=== PATIENT | male | born 1950 | race Caucasian/White ===

== ENCOUNTER 2018-02-23 07:58 | Observation (INO) | payer MEDICARE, OTHER ==
[2018-02-22 12:23] LABS: BASOPHILS % 0.3 % (0.0-1.0); EOSINOPHILS % 0.4 % (0.0-6.0); HEMATOCRIT 38.8 % (38.2-49.6); HEMOGLOBIN 12.2 g/dL (14.0-18.0); LYMPHOCYTES % 14.1 % (18.0-39.1); MEAN CORPUSCULAR HGB CONC 31.4 g/dL (31-35); MEAN CORPUSCULAR VOLUME 95.3 fL (81-99); MONOCYTES # (AUTO) 0.9 (0.2-0.8); MONOCYTES % 13.3 % (4.4-11.3); NEUTROPHILS # (AUTO) 4.6 (2.1-6.9); NEUTROPHILS % 67.5 % (38.7-80.0); PLATELET COUNT 147 x10e3/uL (140-360); RED BLOOD COUNT 4.07 x10e6/uL (4.3-5.7); RED CELL DISTRIBUTION WIDTH 17.9 % (11.7-14.4)
--- NOTE | 2018-02-22 13:22 | Diagnostic Imaging Report ---
EXAMINATION: PA and lateral views of the chest. COMPARISON: None CLINICAL HISTORY: Prostate cancer, preoperative film DISCUSSION: Lines/tubes: None. Lungs: The lungs are well inflated. 1.2 cm radiopaque density in the anterolateral right lower or posterolateral right middle lobe. There is no evidence of pneumonia or pulmonary edema. Pleura: Blunting of the left lateral and posterior costophrenic sulci. Heart and mediastinum: Cardiomediastinal silhouette is unremarkable. Pulmonary vasculature is normal. Bones and soft tissues: No acute bony abnormalities. Degenerative changes in the thoracic spine IMPRESSION: 1. Blunting of the left lateral and posterior costophrenic sulci, likely representing multiple pleural effusion versus pleural thickening. 2. 1.2 cm radiopaque density in the right lower lung may represent a calcified granuloma. Prior films, if available, would be helpful for comparison. If no prior films can be obtained, recommend chest CT for further evaluation. Signed by: Dr. Gerald Martin M.D. on 02/22/2018 1:19 PM
[~2018-02-23] VITALS: Ht 185.4 cm; Wt 94.8 kg
[~2018-02-23 07:58] MED LIST: LISINOPRIL10 MG PO; NORCO 10-325 T1 EACH PO
[2018-02-23] MEDS ORDERED: LEVOFLOXACIN 500MG/D5W 100ML 100 ML IV ONE (08:30)
[2018-02-23] MEDS ORDERED: HYOSCYAMINE 0.125 MG TAB ONE ×2 (08:30→12:11)
[2018-02-23] MEDS ORDERED: IOPAMIDOL 300MG/ML 50ML INFUS..BTL IV ONE (09:07)
[2018-02-23] MEDS ORDERED: MORPHINE SULFATE INJ 10 MG/ML ONE (12:05)
[2018-02-23] MEDS ORDERED: FUROSEMIDE INJ 10 MG/ML 4 ML VIAL ONE (12:10)
[2018-02-23] MEDS ORDERED: FUROSEMIDE INJ 10 MG/ML 2 ML VIAL IV ONE (12:15)
[2018-02-23] MEDS ORDERED: HYOSCYAMINE 0.125 MG TAB PO ONE (12:15)
[2018-02-23] MEDS ORDERED: SODIUM CHLORIDE 0.9% 500ML 500 ML IV ONE (12:15)
[2018-02-23] MEDS ORDERED: SODIUM CHLORIDE 0.9% 1000ML 1,000 ML ONE (12:15)
[2018-02-23] MEDS ORDERED: ONDANSETRON HCL INJ 2 MG/ML VIAL ONE (13:06)
[2018-02-23] MEDS ORDERED: ESMOLOL HCL 100MG/10ML 10 MG/ML VIAL ONE (13:06)
[2018-02-23] MEDS ORDERED: LIDOCAINE HCL 2% LOCAL INJ 5 ML SDV VIAL INJ ONE (13:06)
[2018-02-23] MEDS ORDERED: DEXAMETHASONE SOD PHOS INJ 4 MG/ML VIAL ONE (13:06)
[2018-02-23] MEDS ORDERED: SEVOFLURANE INHAL SOLN 250 ML PEN BTL ONE (13:06)
[2018-02-23] MEDS ORDERED: PROPOFOL IV EMULSION 10 MG/ML 20 ML VIAL ONE (13:06)
[2018-02-23] MEDS ORDERED: ACETAMINOPHEN 1000 MG/100 ML IV ONE (13:06)
[2018-02-23 13:30] VITALS: BP 162/88
[2018-02-23] MEDS ORDERED: HYOSCYAMINE 0.125 MG TAB SL PRN (13:30)
[2018-02-23 13:51] VITALS: BP 162/88
[2018-02-23] MEDS: SODIUM CHLORIDE 0.9% 1000ML 1,000 ML IV SCH ×2 (14:00→20:12)
[2018-02-23] MEDS: HYDROMORPHONE 1MG/1ML INJ IV PRN ×3 (14:01→22:30)
[2018-02-23] MEDS: ONDANSETRON HCL INJ 2 MG/ML VIAL IV PRN ×3 (14:01→22:30)
[2018-02-23 15:34] VITALS: BP 141/80
[2018-02-23] MEDS: HYDROCODONE/APAP 10MG-325MG TAB PO PRN (16:08)
[2018-02-23 16:49] VITALS: BP 141/80
[2018-02-23] MEDS: LISINOPRIL 10 MG TAB PO SCH (17:04)
[2018-02-23 20:34] VITALS: BP 125/66
[2018-02-24 00:07] VITALS: BP 130/71
[2018-02-24] MEDS: HYDROMORPHONE 1MG/1ML INJ IV PRN ×3 (02:30→06:31)
[2018-02-24] MEDS: ONDANSETRON HCL INJ 2 MG/ML VIAL IV PRN ×2 (02:30→06:31)
[2018-02-24] MEDS: SODIUM CHLORIDE 0.9% 1000ML 1,000 ML IV SCH (03:54)
[2018-02-24 04:00] VITALS: BP 132/85
[2018-02-24 05:42] LABS: BASOPHILS % 0.4 % (0.0-1.0); EOSINOPHILS % 0.4 % (0.0-6.0); HEMATOCRIT 28.7 % (38.2-49.6); HEMOGLOBIN 8.7 g/dL (14.0-18.0); LYMPHOCYTES # (AUTO) 0.5 (1.0-3.2); LYMPHOCYTES % 20.5 % (18.0-39.1); MEAN CORPUSCULAR HEMOGLOBIN 29.6 pg (28-32); MEAN CORPUSCULAR HGB CONC 30.3 g/dL (31-35); MEAN CORPUSCULAR VOLUME 97.6 fL (81-99); MONOCYTES # (AUTO) 0.5 (0.2-0.8); MONOCYTES % 18.5 % (4.4-11.3); NEUTROPHILS # (AUTO) 1.5 (2.1-6.9); NEUTROPHILS % 58.3 % (38.7-80.0); PLATELET COUNT 87 x10e3/uL (140-360); RED BLOOD COUNT 2.94 x10e6/uL (4.3-5.7); RED CELL DISTRIBUTION WIDTH 17.6 % (11.7-14.4)
[2018-02-24 06:00] LABS: ANION GAP 12.8 mmol/L (8-16); CALCIUM 8.7 mg/dL (8.4-10.2); CREATININE, SERUM 1.45 mg/dL (0.72-1.25); POTASSIUM 4.8 mmol/L (3.5-5.1)
[2018-02-24 07:19] VITALS: BP 146/75
[2018-02-24] MEDS: LISINOPRIL 10 MG TAB PO SCH (08:44)
[2018-02-24 08:55] VITALS: BP 146/75
[2018-02-24] MEDS: HYDROCODONE/APAP 10MG-325MG TAB PO PRN (10:51)
[2018-02-24 11:16] VITALS: BP 151/73
[2018-02-24 11:18] VITALS: BP 151/73
[2018-02-24] MEDS ORDERED: SODIUM CHLORIDE 0.9% 500ML 500 ML IV ONE (12:15)
[2018-02-24] MEDS ORDERED: FENTANYL CITRATE/PF 100MCG/2 ML INJ ONE (12:39)
[2018-02-24] MEDS ORDERED: MIDAZOLAM HCL 2 MG/2 ML VIAL ONE (12:39)
--- OUTSIDE RECORDS SUMMARY | 2018-03-31 04:50 | XMS REPORT | Clinical Summary ---
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 Disp. Refills Start End Date Status Date lisinopril Take 10 mg by mouth Active (PRINIVIL,ZESTRIL) 10 mg daily. tablet HYDROcodone-acetaminophen Take 1 tablet by mouth Active (NORCO) 10-325 mg per every 6 (six) hours as tablet needed for moderate pain. ferrous sulfate 325 (65 Take 325 mg by mouth 01/12/20 Discontin FE) MG tablet daily with breakfast. 18 ued Active Problems Not on file Encounters Date Type Specialty Care Team Description 01/27/2018 [facility] Radiology Randy Mcmillan, Malignant neoplasm of Encounter prostate; Elevated prostate specific antigen (PSA) 01/27/2018 Hospital Radiology Randy Mcmillan, Encounter MD 01/27/2018 [facility] Radiology Randy Mcmillan, Malignant neoplasm of Encounter prostate; Elevated prostate specific antigen (PSA) 01/18/2018 Procedure Pass Radiology 01/18/2018 Transcribe Access Randy Mcmillan, Malignant neoplasm of Orders prostate (Primary Dx); Elevated prostate specific antigen (PSA) 01/11/2018 [facility] Radiology Randy Mcmillan, Elevated prostate Encounter specific antigen (PSA); Enlarged prostate with urinary obstruction 01/11/2018 [facility] General Surgery Randy Mcmillan, Elevated PSA; Encounter Benign localized hyperplasia of prostate with urinary obstruction 01/11/2018 Anesthesia General Surgery Silvio Rivas MD Event 01/11/2018 Procedure Pass General Surgery 01/11/2018 Surgery General Surgery Randy Mcmillan, Cystoscopy , TRANSRECTAL PROSTATE ULTRASOUND NEEDLE BIOPSY 01/06/2018 Pre-Admit Pre-Admission Testing Randy Mcmillan, Preoperative testing Testing MD (Primary Dx) Appointment 01/06/2018 Transcribe Access Randy Mcmillan, Elevated prostate Orders MD specific antigen (PSA) (Primary Dx); Enlarged prostate with urinary obstruction 01/04/2018 Hospital Radiology Randy Mcmillan, Enlarged prostate with Encounter MD urinary obstruction; Mixed incontinence urge and stress (male)(female) 12/30/2017 Transcribe Access Randy Mcmillan, Enlarged prostate with Orders MD urinary obstruction (Primary Dx); Mixed incontinence urge and stress (male)(female) after 02/22/2017 Family History Medical History Relation Name Comments Heart disease Father Aneurysm Mother Relation Name Status Comments Father Mother Social History Tobacco Use Types Packs/Day Years Used Date Current Every Day Smoker Cigarettes 0.25 55 Smokeless Tobacco: Chew Current User Tobacco Cessation: Ready to Quit: No; Counseling Given: Yes Alcohol Use Drinks/Week oz/Week Comments Yes 30 Shots of 18.0 4or 5 shots per night liquor Sex Assigned at Date Recorded Not on file Last Filed Vital Signs Vital Sign Reading Time Taken Blood Pressure 140/78 01/11/2018 5:04 PM CDT Pulse 89 01/11/2018 5:04 PM CDT Temperature 36.1 C (97 F) 01/11/2018 5:04 PM CDT Respiratory Rate 18 01/11/2018 5:04 PM CDT Oxygen Saturation 95% 01/11/2018 4:56 PM CDT Inhaled Oxygen - - Concentration Weight 81.2 kg (179 lb) 01/27/2018 1:48 PM CDT Height 186.7 cm (6' 1.5") 01/11/2018 2:13 PM CDT Body Mass Index 23.3 01/27/2018 1:48 PM CDT Plan of Treatment Health Maintenance Due Date Last Done Comments SHINGRIX VACCINE (#1) 1998 ZOSTER VACCINE 2008 PNEUMOCOCCAL 2013 POLYSACCHARIDE VACCINE AGE 65 AND OVER PNEUMOCOCCAL-13 2013 INFLUENZA VACCINE 01/26/2018 COLON CANCER SCREENING 09/22/2026 09/22/2016 Procedures Procedure Name Priority Date/Time Associated Diagnosis Comments MRI PELVIS W WO CONTRAST Routine 01/27/2018 Malignant neoplasm of Results for this 2:17 PM CDT prostate procedure are in the Elevated prostate results section. specific antigen (PSA) NM BONE SCAN WHOLE BODY Routine 01/27/2018 Malignant neoplasm of Results for this 1:30 PM CDT prostate procedure are in the Elevated prostate results section. specific antigen (PSA) US PROSTATE BIOPSY Routine 01/11/2018 Elevated prostate Results for this 4:16 PM CDT specific antigen (PSA) procedure are in the Enlarged prostate with results section. urinary obstruction IN AN ELECTIVE Routine 01/11/2018 SUPRAGLOTTIC AIRWAY 3:57 PM CDT Procedure Note - Alvaro Calderon CRNA - 01/11/2018 3:57 PM CDT Airway Date/Time: 01/11/2018 3:51 PM Performed by: ALVARO CALDERON Authorized by: SILVIO RIVAS Location: OR Urgency: Elective Difficult Airway: No Resident/C RNA/AA: LAVARO CALDERON Performed by: resident/C RNA/AA Preoxygena gian with 100% O2: Yes C-spine Precaution s Maintained Throughout : Yes Mask Ventilatio n: Not attempted Final Airway Type: Supraglott ic airway Final LMA: Classic LMA Size: 4 Number of Attempts at Approach: 1 SURGICAL PATHOLOGY Routine 01/11/2018 Results for this REQUEST 9:36 AM CDT procedure are in the results section. MANUAL DIFFERENTIAL Routine 01/06/2018 Results for this 11:12 AM CDT procedure are in the results section. ZZESTIMATED GFR Routine 01/06/2018 Results for this 11:12 AM CDT procedure are in the results section. BASIC METABOLIC PANEL Routine 01/06/2018 Preoperative testing Results for this 11:12 AM CDT procedure are in the results section. CBC WITH PLATELET AND Routine 01/06/2018 Preoperative testing Results for this DIFFERENTIAL 11:12 AM CDT procedure are in the results section. ECG PRE/POST OP Routine 01/06/2018 Preoperative testing Results for this 11:05 AM CDT procedure are in the results section. US PROSTATE Routine 01/04/2018 Enlarged prostate with Results for this 1:48 PM CDT urinary obstruction procedure are in the Mixed incontinence urge results section. and stress (male)(female) after 02/22/2017 Results * MRI Pelvis W Wo Contrast (01/27/2018 2:17 PM) Narrative Performed At [facility] EXAMINATION: MRI PELVIS W WO CONTRAST CLINICAL HISTORY: C61 Malignant neoplasm of prostate, R97.20 Elevated prostate specific antigen (PSA), C61 TECHNIQUE: Multiplanar multisequence MR images of the pelvis were obtained pre - and post intravenous administration of Gadolinium. Please note, the exam was performed as MR if pelvis to evaluate for metastatic disease, not a dedicated prostate MRI. COMPARISON: None. FINDINGS: Evaluation of the prostate is limited without small field of view imaging. Postbiopsy hemorrhage is noted through the prostate. The prostate does is normal in size and measures 2.7 x 4.5 x 3.6 cm. No focus of restricted diffusion is identified. Extra prostatic tissues and fat appear unremarkable given recent biopsy. Urinary bladder is unremarkable without wall thickening. Seminal vesicles appear normal. There is no pathological adenopathy in the pelvis. There is extensive artifact in the right hip from right hip replacement with revision and lateral cerclage plate. Excluding areas affected by this artifact , no suspicious osseous infiltration is identified through the remainder of the pelvis. Diverticulosis is present without diverticulitis. Bowel is otherwise unremarkable. Artifact is noted over the posterior right hip which likely relates to previous surgery and scar. IMPRESSION: No findings for metastatic disease in the pelvis. [facility]-[id number] Procedure Note [facility], Radiology Results - 01/27/2018 5:26 PM CDT EXAMINATION: MRI PELVIS W WO CONTRAST CLINICAL HISTORY: C61 Malignant neoplasm of prostate, R97.20 Elevated prostate specific antigen (PSA), C61 TECHNIQUE: Multiplanar multisequence MR images of the pelvis were obtained pre- and post intravenous administration of Gadolinium. Please note, the exam was performed as MR if pelvis to evaluate for metastatic disease, not a dedicated prostate MRI. COMPARISON: None. FINDINGS: Evaluation of the prostate is limited without small field of view imaging. Postbiopsy hemorrhage is noted through the prostate. The prostate does is normal in size and measures 2.7 x 4.5 x 3.6 cm. No focus of restricted diffusion is identified. Extra prostatic tissues and fat appear unremarkable given recent biopsy. Urinary bladder is unremarkable without wall thickening. Seminal vesicles appear normal. There is no pathological adenopathy in the pelvis. There is extensive artifact in the right hip from right hip replacement with revision and lateral cerclage plate. Excluding areas affected by this artifact, no suspicious osseous infiltration is identified through the remainder of the pelvis. Diverticulosis is present without diverticulitis. Bowel is otherwise unremarkable. Artifact is noted over the posterior right hip which likely relates to previous surgery and scar. IMPRESSION: No findings for metastatic disease in the pelvis. [facility]-[id number] Performing Organization Address City/State/Zipcode Phone Number [facility] [address] [place] [address] * NM Bone Scan Whole Body (01/27/2018 1:30 PM) Narrative Performed At PROCEDURE: NM BONE SCAN WHOLE BODY [facility] CLINICAL HISTORY: C61 Malignant neoplasm of prostate, R97.20 Elevated prostate specific antigen (PSA), C61 COMPARISON: No prior bone scans available. MRI pelvis today TECHNIQUE: The patient was injected with 25 millicuries of [id number] intravenously, followed 3 hours later by whole-body scanning in the anterior and posterior projections. FINDINGS: Mild uptake surrounds much of the right hip prosthesis. Marked uptake is present diffusely in the right ankle. Mild uptake focally in the mid shaft of the left clavicle. Mild uptake in the shoulders and knees. Physiological renal excretion. IMPRESSION: 1. No definite evidence of osseous metastatic disease. 2. Probable recent fracture in or near the right ankle. 3. Possible subacute or older left clavicular fracture. Metastatic disease is unlikely. 4. Degenerative uptake. 5. Abnormal uptake surrounding a right hip prosthesis. This could represent normal variation or loosening. Clinical correlation is recommended. [facility]-[id number] Procedure Note Interface, Radiology Results Incoming - 01/27/2018 3:47 PM CDT PROCEDURE: NM BONE SCAN WHOLE BODY CLINICAL HISTORY: C61 Malignant neoplasm of prostate, R97.20 Elevated prostate specific antigen (PSA), C61 COMPARISON: No prior bone scans available. MRI pelvis today TECHNIQUE: The patient was injected with 25 millicuries of [id number] intravenously , followed 3 hours later by whole-body scanning in the anterior and posterior projections. FINDINGS: Mild uptake surrounds much of the right hip prosthesis. Marked uptake is present diffusely in the right ankle. Mild uptake focally in the mid shaft of the left clavicle. Mild uptake in the shoulders and knees. Physiological renal excretion. IMPRESSION: 1. No definite evidence of osseous metastatic disease. 2. Probable recent fracture in or near the right ankle. 3. Possible subacute or older left clavicular fracture. Metastatic disease is unlikely. 4. Degenerative uptake. 5. Abnormal uptake surrounding a right hip prosthesis. This could represent normal variation or loosening. Clinical correlation is recommended. [facility]-[id number] Performing Organization Address City/[facility]/Zipcode Phone Number [facility] [address] [place] [address] * US Prostate Biopsy (01/11/2018 4:16 PM) Narrative Performed At US PROSTATE BIOPSY [facility] R97.20 Elevated prostate specific antigen (PSA), N40.1 Benign prostatic hyperplasia with lower urinary tract symptoms, R97.20 N40.1 TECHNIQUE: Multiple sonographic images of the prostate gland are obtained using real- time ultrasonography. FINDINGS: The prostate gland measures 4.6 x 4.0 x 3.5cm. The prostate volume is 33.6cc. Prostate calcifications are present. Using ultrasound guidance, multiple prostate biopsies were performed. IMPRESSION: 1. The prostate gland is enlarged. 2. Ultrasound guidance was performed for prostate biopsy. Procedure Note [facility], Radiology Results Incoming - 01/11/2018 4:30 PM CDT US PROSTATE BIOPSY R97.20 Elevated prostate specific antigen (PSA), N40.1 Benign prostatic hyperplasia with lower urinary tract symptoms, R97.20 N40.1 TECHNIQUE: Multiple sonographic images of the prostate gland are obtained using real-time ultrasonography. FINDINGS: The prostate gland measures 4.6 x 4.0 x 3.5cm. The prostate volume is 33.6cc. Prostate calcifications are present. Using ultrasound guidance, multiple prostate biopsies were performed. IMPRESSION: 1. The prostate gland is enlarged. 2. Ultrasound guidance was performed for prostate biopsy. Performing Organization Address City/[facility]/Zipcode Phone Number [facility] [address] [place] [address] * Surgical pathology request (01/11/2018 9:36 AM) [facility] DEPARTMENT OF PATHOLOGY AND GENOMIC MEDICINE Surgical pathology report See link below for PDF Lab [facility] DEPART[facility] OF Report PATHOLOGY AND GENOMIC MEDICINE Result status This is Final Report to [facility] DEPARTMENT OF [id number] PATHOLOGY AND GENOMIC MEDICINE Performing Organization Address City/State/Zipcode Phone Number [facility] DEPARTMENT OF [facility] [place] [address] PATHOLOGY AND GENOMIC MEDICINE * Estimated GFR (01/06/2018 11:12 AM) GFR Non Af Amer 46 (A) mL/min/1.73 m2 [facility] DEPARTMENT OF PATHOLOGY AND GENOMIC MEDICINE GFR Af Amer 56 (A) mL/min/1.73 m2 [facility] DEPARTMENT OF Comment: PATHOLOGY AND Chronic kidney disease: <60 GENOMIC MEDICINE mL/min/1.73m2 Kidney failure: <15 mL/min/1.73m2 The estimated GFR is calculated from the IDMS-traceable Modification of Diet in Renal Disease Equation. The accuracy of the calculation is poor when the creatinine is normal. Calculated values >90 mL/min/1.73m2 are not reported. This equation has not been validated in children (<18 years), women, the elderly (>70 years), or ethnic groups other than Caucasians and Americans. Specimen Plasma specimen Performing Organization Address City/[facility]/[place] [address] PATHOLOGY [facility] * Manual differential (01/06/2018 11:12 AM) Manual differential PERFORMED [facility] DEPARTMENT OF PATHOLOGY AND GENOMIC MEDICINE Neutrophils 76.0 (H) 36.0 - 66.0 % [facility] PATHOLOGY AND GENOMIC MEDICINE Lymphocytes 19.0 (L) 24.0 - 44.0 % [facility] DEPARTMENT OF PATHOLOGY AND GENOMIC MEDICINE Monocytes 5.0 0.0 - 6.0 % [facility] DEPARTMENT OF PATHOLOGY AND GENOMIC MEDICINE Eosinophils 0.0 0.0 - 6.0 % [facility] PATHOLOGY AND GENOMIC MEDICINE Basophils 0.0 0.0 - 1.2 % [facility] DEPARTMENT OF PATHOLOGY AND GENOMIC MEDICINE Metamyelocytes 0 0 - 1 % [facility] DEPARTMENT OF PATHOLOGY AND GENOMIC MEDICINE Promyelocytes 0 0 - 1 % [facility] DEPARTMENT OF PATHOLOGY AND GENOMIC MEDICINE Platelet slide review Drea adequate [facility] DEPARTMENT OF PATHOLOGY AND GENOMIC MEDICINE Neutrophils, vacuolated Slight [facility] DEPARTMENT OF PATHOLOGY AND GENOMIC MEDICINE Hypersegmented Occasional [facility] DEPARTMENT OF neutrophils PATHOLOGY AND GENOMIC MEDICINE Performing Organization Address City/State/Zipcode Phone Number [place] [phone] [place] [address] [employer] [facility] * CBC with platelet and differential (01/06/2018 11:12 AM) WBC 5.4 4.2 - 11.0 k/uL [facility] DEPARTMENT PATHOLOGY AND GENOMIC MEDICINE RBC 3.83 (L) 4.04 - 5.86 m/uL [facility] DEPARTMENT OF PATHOLOGY AND GENOMIC MEDICINE HGB 10.9 (L) 13.0 - 17.3 g/dL [facility] DEPARTMENT OF PATHOLOGY AND GENOMIC MEDICINE HCT 35.5 34.0 - 45.0 % [facility] DEPARTMENT OF PATHOLOGY AND GENOMIC MEDICINE MCV 92.7 80.0 - 98.0 fL [facility] DEPARTMENT OF PATHOLOGY AND GENOMIC MEDICINE MCH 28.5 27.0 - 34.0 pg [facility] DEPARTMENT OF PATHOLOGY AND GENOMIC MEDICINE MCHC 30.7 (L) 31.5 - 36.5 g/dL [facility] DEPARTMENT OF PATHOLOGY AND GENOMIC MEDICINE RDW - SD 58.2 (H) 37.0 - 51.0 fL [facility] DEPARTMENT OF PATHOLOGY AND GENOMIC MEDICINE MPV 9.6 7.4 - 10.4 fL [facility] DEPARTMENT OF PATHOLOGY AND GENOMIC MEDICINE Platelet count 251 150 - 400 k/uL [facility] DEPARTMENT PATHOLOGY AND GENOMIC MEDICINE Nucleated RBC 0.00 /100 WBC [facility] DEPARTMENT OF PATHOLOGY AND GENOMIC MEDICINE Neutrophils 76.0 (H) 36.0 - 66.0 % [facility] DEPARTMENT OF PATHOLOGY AND GENOMIC MEDICINE Lymphocytes 19.0 (L) 24.0 - 44.0 % [facility] DEPARTMENT OF PATHOLOGY AND GENOMIC MEDICINE Monocytes 5.0 0.0 - 6.0 % [facility] DEPARTMENT OF PATHOLOGY AND GENOMIC MEDICINE Eosinophils 0.0 0.0 - 6.0 % [facility] DEPARTMENT OF PATHOLOGY AND GENOMIC MEDICINE Basophils 0.0 0.0 - 1.2 % [facility] DEPARTMENT OF PATHOLOGY AND GENOMIC MEDICINE Specimen Blood Performing Organization Address City/State/Zipcode Phone Number [place] [address] [place] [address] PATHOLOGY AND GENOMIC MEDICINE * Basic metabolic panel (01/06/2018 11:12 AM) Sodium 137 135 - 150 mEq/L [facility] DEPARTMENT OF PATHOLOGY AND GENOMIC MEDICINE Potassium 4.9 3.5 - 5.0 mEq/L [facility] DEPARTMENT OF PATHOLOGY AND GENOMIC MEDICINE Chloride 98 98 - 112 mEq/L [facility] DEPARTMENT OF PATHOLOGY AND GENOMIC MEDICINE CO2 24 24 - 31 mmol/L [facility] DEPARTMENT OF PATHOLOGY AND GENOMIC MEDICINE Anion gap 15@ANIO 7 - 15 mEq/L [facility] DEPARTMENT OF PATHOLOGY AND GENOMIC MEDICINE BUN 24 (H) 7 - 18 mg/dL [facility] DEPARTMENT OF PATHOLOGY AND GENOMIC MEDICINE Creatinine 1.50 (H) 0.70 - 1.20 mg/dL [facility] DE[facility]MENT OF PATHOLOGY AND GENOMIC MEDICINE Glucose 140 (H) 65 - 100 mg/dL [facility] DEPARTMENT OF PATHOLOGY AND GENOMIC MEDICINE Calcium 9.9 8.8 - 10.2 mg/dL [facility] DE[facility]MENT OF PATHOLOGY AND GENOMIC MEDICINE Specimen Plasma specimen Performing Organization Address City/State/Zipcode Phone Number [facility] DEPARTMENT OF [address] [place] [address] PATHOLOGY AND GENOMIC MEDICINE * ECG Pre/Post Op (01/06/2018 11:05 AM) Ventricular rate 87 [facility] Atrial rate 87 [facility] IN interval 138 [facility] QRSD interval 72 [facility] QT interval 364 [facility] QTC interval 438 H MUSE P axis 1 56 [facility] QRS axis 1 47 [facility] MUSE T wave axis 38 [facility] MUSE EKG impression Sinus rhythm with premature [facility] MUSE atrial complexes-Otherwise normal ECG-In automated comparison with ECG of 21-SEP-2016 22:57,-premature atrial complexes are now present- Performing Organization Address City/State/Zipcode Phone Number [facility] [address] [place] [address] * US Prostate (01/04/2018 1:48 PM) Narrative Performed At EXAMINATION: US PROSTATE [facility] CLINICAL HISTORY: N40.1 Benign prostatic hyperplasia with lower urinary tract symptoms, N13.8 Other obstructive and reflux uropathy, N40.1 N39.46 COMPARISON: None. Multiple transrectal sonographic images of the prostate gland are obtained using real-time ultrasonography. FINDINGS: The prostate gland measures 4.0 x 4.6 x 3.5 cm. The prostate volume is 33.6 cc. There are scattered calcifications seen within the prostate. There are no clearly defined hypoechoic regions. The seminal vesicles are unremarkable. IMPRESSION: 1. The prostate gland is enlarged. 2. Prostate calcifications are present. Procedure Note Interface, Radiology Results Incoming - 01/04/2018 2:05 PM CDT EXAMINATION: US PROSTATE CLINICAL HISTORY: N40.1 Benign prostatic hyperplasia with lower urinary tract symptoms, N13.8 Other obstructive and reflux uropathy, N40.1 N39.46 COMPARISON: None. Multiple transrectal sonographic images of the prostate gland are obtained using real-time ultrasonography. FINDINGS: The prostate gland measures 4.0 x 4.6 x 3.5 cm. The prostate volume is 33.6 cc. There are scattered calcifications seen within the prostate. There are no clearly defined hypoechoic regions. The seminal vesicles are unremarkable. IMPRESSION: 1. The prostate gland is enlarged. 2. Prostate calcifications are present. Performing Organization Address City/State/Zipcode Phone Number [facility] [address] [place] [address] after 02/22/2017 Insurance Payer Benefit Subscriber ID Type Phone Address Plan / Group MEDICARE MEDICARE xxxxxxxxxx Medicare [place], [place] PART A AND B NEW ERA LIFE INS NEW [place] xxxxxxxxxx Commercial LIFE INS Guarantor Name Account Relation to Date of Phone Billing Address Type Patient JOURDAN SEGURA Personal/F Self 1950 Home: [phone] [place] [address]
--- OUTSIDE RECORDS SUMMARY | 2018-03-31 04:50 | XMS REPORT ---
Author Author [facility] Address Unknown Phone Unavailable Care Team Providers Care Apartment House Manager Name Role Phone IVELISSE SHARIF Unavailable Unavailable Problems This patient has no known problems. Allergies, Adverse Reactions, Alerts This patient has no known allergies or adverse reactions. Medications This patient has no known medications. Results Test Description Test Time Test Comments Text Results Atomic Results Result Comments CHEST 2 VIEWS 2018-02-22 13:03:00 [place] [address] Patient Name: JOURDAN COWAN MR #: [id number] : 1950 Age/Sex: 67/M Req #: [id number] [facility] Physician: Ordered by: OTONIEL CHAIREZ MD Report #: [id number] Location: OR Room/Bed: Procedure: [id number] DX/CHEST 2 VIEWS Exam Date: Exam Time: REPORT STATUS: Signed EXAMINATION: PA and lateral views of the chest. COMPARISON: None CLINICAL HISTORY: Prostate cancer, preoperative film DISCUSSION: Lines/tubes: None. Lungs: The lungs are well inflated. 1.2 cm radiopaque density in the anterolateral right lower or posterolateral right middle lobe. There is no evidence of pneumonia or pulmonary edema. Pleura: Blunting of the left lateral and posterior costophrenic sulci. Heart and mediastinum: Cardiomediastinal silhouette is unremarkable. Pulmonary vasculature is normal. Bones and soft tissues: No acute bony abnormalities. Degenerative changes in the thoracic spine IMPRESSION: 1. Blunting of the left lateral and posterior costophrenic sulci, likely representing multiple pleural effusion versus pleural thickening. 2. 1.2 cm radiopaque density in the right lower lung may represent a calcified granuloma. Prior films, if available, would be helpful for comparison. If no prior films can be obtained, recommend chest CT for further evaluation. Signed by: Dr. Dirk Martin M.D. on 02/22/2018 1:19 PM Dictated By: DIRK MARTIN MD 131 Transcribed By: MAURIZIO on 1318 COPY TO: OTONIEL CHAIREZ MD
--- OUTSIDE RECORDS SUMMARY | 2018-03-31 04:54 | XMS REPORT | Clinical Summary ---
Author Author [facility] Address Unknown Phone Unavailable Care Team Providers Care Night Custodian Name Role Phone Vargas Mcmillan MD PCP [...] Date Type Specialty Care Team Description 01/27/2018 [facility] Radiology Randy Mcmillan, Malignant neoplasm of Encounter prostate; Elevated prostate specific antigen (PSA) 01/27/2018 Hospital Radiology Randy Mcmillan, Encounter MD 01/27/2018 [facility] Radiology Randy Mcmillan, Malignant neoplasm of Encounter prostate; Elevated prostate specific antigen (PSA) 01/18/2018 Procedure Pass Radiology 01/18/2018 Transcribe Access Randy Mcmillan, Malignant neoplasm of Orders prostate (Primary Dx); Elevated prostate specific antigen (PSA) 01/11/2018 [facility] Radiology Randy Mcmillan, Elevated prostate Encounter specific antigen (PSA); Enlarged prostate with urinary obstruction 01/11/2018 [facility] General Surgery Randy Mcmillan, Elevated PSA; Encounter [...] Enlarged prostate with results section. urinary obstruction ME AN ELECTIVE Routine 01/11/2018 [address] 3:57 PM CDT Procedure Note - Alvaro Calderon CRNA - 01/11/2018 3:57 PM CDT Airway Date/Time: 01/11/2018 3:51 PM Performed by: ALVARO CALDERON Authorized by: SILVIO RIVAS Location: OR Urgency: Elective Difficult Airway: No Resident/C RNA/AA: ALVARO CALDERON Performed by: resident/C RNA/AA Preoxygena gian [...] findings for metastatic disease in the pelvis. [facility]-[id number] Procedure Note [facility], Radiology Results - 01/27/2018 5:26 PM CDT [...] findings for metastatic disease in the pelvis. [facility]-[id number] Performing Organization Address City/State/Zipcode Phone Number [place] [address] [place] [address] * NM Bone Scan Whole Body (01/27/2018 1:30 PM) Narrative Performed At PROCEDURE: NM BONE SCAN WHOLE BODY [facility] CLINICAL HISTORY: C61 Malignant neoplasm of prostate, R97.20 Elevated prostate specific antigen (PSA), C61 COMPARISON: No prior bone scans available. MRI pelvis today TECHNIQUE: The patient was injected with 25 millicuries of [id number] intravenously, followed 3 hours later by whole-body [...] variation or loosening. Clinical correlation is recommended. [facility]-[id number] Procedure Note Interface, Radiology Results Incoming - 01/27/2018 3:47 PM CDT PROCEDURE: NM BONE SCAN WHOLE BODY CLINICAL HISTORY: C61 Malignant neoplasm of prostate, R97.20 Elevated prostate specific antigen (PSA), C61 COMPARISON: No prior bone scans available. MRI pelvis today TECHNIQUE: The patient was injected with 25 millicuries of [id number] intravenously , followed 3 hours later by [...] variation or loosening. Clinical correlation is recommended. [facility]-[id number] Performing Organization Address City/[facility]/Zipcode Phone Number [facility] [address] [place] [address] * US Prostate Biopsy (01/11/2018 4:16 PM) [...] was performed for prostate biopsy. Procedure Note [facility], Radiology Results Incoming - 01/11/2018 4:30 PM [...] performed for prostate biopsy. Performing Organization Address City/[facility]/Zipcode Phone Number [facility] [address] [place] [address] * Surgical pathology request (01/11/2018 9:36 AM) [facility] DEPARTMENT OF PATHOLOGY AND GENOMIC MEDICINE Surgical pathology report See link below for PDF Lab [facility] DEPARTMENT OF Report PATHOLOGY AND GENOMIC MEDICINE Result status This is Final Report to [facility] DEPARTMENT OF [id number] PATHOLOGY AND GENOMIC MEDICINE Performing Organization Address City/State/Zipcode Phone Number [facility] DEPARTMENT OF [facility] [place] [address] PATHOLOGY AND GENOMIC MEDICINE * Estimated GFR (01/06/2018 11:12 AM) GFR Non Af Amer 46 (A) mL/min/1.73 m2 [facility] DEPARTMENT OF PATHOLOGY AND GENOMIC MEDICINE GFR Af Amer 56 (A) mL/min/1.73 m2 [facility] DEPARTMENT OF Comment: PATHOLOGY AND Chronic kidney [...] Americans. Specimen Plasma specimen Performing Organization Address City/[facility]/[place] [address] PATHOLOGY [facility] * Manual differential (01/06/2018 11:12 AM) Manual differential PERFORMED [facility] DEPARTMENT OF PATHOLOGY AND GENOMIC MEDICINE Neutrophils 76.0 (H) 36.0 - 66.0 % [facility] PATHOLOGY AND GENOMIC MEDICINE Lymphocytes 19.0 (L) 24.0 - 44.0 % [facility] DEPARTMENT OF PATHOLOGY AND GENOMIC MEDICINE Monocytes 5.0 0.0 - 6.0 % [facility] DEPARTMENT OF PATHOLOGY AND GENOMIC MEDICINE Eosinophils 0.0 0.0 - 6.0 % [facility] PATHOLOGY AND GENOMIC MEDICINE Basophils 0.0 0.0 - 1.2 % [facility] DEPARTMENT OF PATHOLOGY AND GENOMIC MEDICINE Metamyelocytes 0 0 - 1 % [facility] DEPARTMENT OF PATHOLOGY AND GENOMIC MEDICINE Promyelocytes 0 0 - 1 % [facility] DEPARTMENT OF PATHOLOGY AND GENOMIC MEDICINE Platelet slide review Drea adequate [facility] DEPARTMENT OF PATHOLOGY AND GENOMIC MEDICINE Neutrophils, vacuolated Slight [facility] DEPARTMENT OF PATHOLOGY AND GENOMIC MEDICINE Hypersegmented Occasional [facility] DEPARTMENT OF neutrophils PATHOLOGY AND GENOMIC MEDICINE Performing Organization Address City/State/Zipcode Phone Number [place] [phone] [place] [address] [employer] [facility] * CBC with platelet and differential (01/06/2018 11:12 AM) WBC 5.4 4.2 - 11.0 k/uL [facility] DEPARTMENT PATHOLOGY AND GENOMIC MEDICINE RBC 3.83 (L) 4.04 - 5.86 m/uL [facility] DEPARTMENT OF PATHOLOGY AND GENOMIC MEDICINE HGB 10.9 (L) 13.0 - 17.3 g/dL [facility] DEPARTMENT OF PATHOLOGY AND GENOMIC MEDICINE HCT 35.5 34.0 - 45.0 % [facility] DEPARTMENT OF PATHOLOGY AND GENOMIC MEDICINE MCV 92.7 80.0 - 98.0 fL [facility] DEPARTMENT OF PATHOLOGY AND GENOMIC MEDICINE MCH 28.5 27.0 - 34.0 pg [facility] DEPARTMENT OF PATHOLOGY AND GENOMIC MEDICINE MCHC 30.7 (L) 31.5 - 36.5 g/dL [facility] DEPARTMENT OF PATHOLOGY AND GENOMIC MEDICINE RDW - SD 58.2 (H) 37.0 - 51.0 fL [facility] DEPARTMENT OF PATHOLOGY AND GENOMIC MEDICINE MPV 9.6 7.4 - 10.4 fL [facility] DEPARTMENT OF PATHOLOGY AND GENOMIC MEDICINE Platelet count 251 150 - 400 k/uL [facility] DEPARTMENT PATHOLOGY AND GENOMIC MEDICINE Nucleated RBC 0.00 /100 WBC [facility] DEPARTMENT OF PATHOLOGY AND GENOMIC MEDICINE Neutrophils 76.0 (H) 36.0 - 66.0 % [facility] DEPARTMENT OF PATHOLOGY AND GENOMIC MEDICINE Lymphocytes 19.0 (L) 24.0 - 44.0 % [facility] DEPARTMENT OF PATHOLOGY AND GENOMIC MEDICINE Monocytes 5.0 0.0 - 6.0 % [facility] DEPARTMENT OF PATHOLOGY AND GENOMIC MEDICINE Eosinophils 0.0 0.0 - 6.0 % [facility] DEPARTMENT OF PATHOLOGY AND GENOMIC MEDICINE Basophils 0.0 0.0 - 1.2 % [facility] DEPARTMENT OF PATHOLOGY AND GENOMIC MEDICINE Specimen Blood Performing Organization Address City/State/Zipcode Phone Number [place] [address] [place] [address] PATHOLOGY AND GENOMIC MEDICINE * Basic metabolic panel (01/06/2018 11:12 AM) Sodium 137 135 - 150 mEq/L [facility] DEPARTMENT OF PATHOLOGY AND GENOMIC MEDICINE Potassium 4.9 3.5 - 5.0 mEq/L [facility] DEPARTMENT OF PATHOLOGY AND GENOMIC MEDICINE Chloride 98 98 - 112 mEq/L [facility] DEPARTMENT OF PATHOLOGY AND GENOMIC MEDICINE CO2 24 24 - 31 mmol/L [facility] DEPARTMENT OF PATHOLOGY AND GENOMIC MEDICINE Anion gap 15@ANIO 7 - 15 mEq/L [facility] DEPARTMENT OF PATHOLOGY AND GENOMIC MEDICINE BUN 24 (H) 7 - 18 mg/dL [facility] DEPARTMENT OF PATHOLOGY AND GENOMIC MEDICINE Creatinine 1.50 (H) 0.70 - 1.20 mg/dL [facility] DEPARTMENT OF PATHOLOGY AND GENOMIC MEDICINE Glucose 140 (H) 65 - 100 mg/dL [facility] DEPARTMENT OF PATHOLOGY AND GENOMIC MEDICINE Calcium 9.9 8.8 - 10.2 mg/dL [facility] DEPARTMENT OF PATHOLOGY AND GENOMIC MEDICINE Specimen Plasma specimen Performing Organization Address City/State/Zipcode Phone Number [facility] DEPARTMENT OF [address] [place] [address] PATHOLOGY AND GENOMIC MEDICINE * ECG Pre/Post Op (01/06/2018 11:05 AM) Ventricular rate 87 [facility] Atrial rate 87 [facility] ME interval 138 [facility] QRSD interval 72 [facility] QT interval 364 [facility] QTC interval 438 H MUSE P axis 1 56 [facility] QRS axis 1 47 [facility] MUSE T wave axis 38 [facility] MUSE EKG impression Sinus rhythm with premature [facility] MUSE atrial complexes-Otherwise normal ECG-In automated comparison with ECG of 21-SEP-2016 22:57,-premature atrial complexes are now present- Performing Organization Address City/State/Zipcode Phone Number [facility] [address] [place] [address] * US Prostate (01/04/2018 1:48 PM) Narrative [...] Address City/State/Zipcode Phone Number [facility] [address] [place] [address] after 02/22/2017 Insurance Payer Benefit Subscriber ID Type Phone Address Plan / Group MEDICARE MEDICARE xxxxxxxxxx Medicare [place], [place] PART A AND B NEW ERA LIFE INS NEW ERA xxxxxxxxxx Commercial LIFE INS Guarantor Name Account Relation to Date of Phone Billing Address Type Patient JOURDAN SEGURA Personal/F Self 1950 Home: [address] [phone] [place] [address]
--- NOTE | 2018-03-31 06:34 | Operative Report ---
DATE OF PROCEDURE: February 23, 2018 DIAGNOSES 1. Adenocarcinoma of the prostate. 2. Urethral stenosis. OPERATION 1. Urethral dilation. 2. Cystourethroscopy. 3. Transurethral resection of the prostate laser XPS. ANESTHETIC: General. Mr. Segura is a 67-year-old male who presented with a chief complaint of lower urinary tract obstructive symptoms. He was also noted to have an elevated PSA. Transrectal ultrasound-guided needle biopsies showed adenocarcinoma of the prostate, and cystoscopy showed an enlarged, occlusive prostate gland. He underwent transrectal ultrasound-guided needle biopsies, which showed adenocarcinoma of the prostate. He was brought at this time for cystourethroscopy and TURP and then will be followed by radiation therapy and Lupron. This patient was placed on the table in the lithotomy position and was prepped and draped in a sterile manner after satisfactory anesthesia. The urethra was dilated with Sullivan sounds up to #28 Luxembourger. It was noted that he has a stricture at the level of the urethral meatus and the fossa navicularis and also a urethral stricture at the level of the distal bulbous urethra, which were both dilated satisfactorily. A #23-Luxembourger cystoresectoscope was used, and cystourethroscopy was performed. The scope was passed easily all the way up to the bladder. Cystoscopy confirmed the previous cystoscopic findings. Vaporization of the prostate was then started from 11 to 7 o'clock starting at the bladder neck to just proximal to the verumontanum and down to the capsular fibers. Hemostasis was obtained all through and was very adequate. Vaporization was then started, starting at 1 o'clock to 5 o'clock, again starting at the bladder neck to just proximal to the verumontanum and down to the capsular fibers. Again, hemostasis was obtained and was very adequate. Finally, vaporization of the 12 o'clock position was done. At the termination of the procedure, it was noted that the bladder mucosa, both ureteral orifices, and the external sphincter were intact without laser energy damage. The cystoresectoscope was removed. A #22 Luxembourger Vanegas catheter was placed on mild traction. Estimated blood loss was about 25 mL. Plan for this patient is to keep the Vanegas catheter in for about 24 hours. Job#: [id number]
== END 2018-02-24 12:00 | disposition home or self-care (01) ==
LOC: OR 07:58 → PACU V 12:53 → IMCU 13:12 → MED/SURG2 02-24 11:20 → IMCU 02-24 11:40
PROVIDERS: ADMIT Specialist; ATTEND Specialist
DX: C61 Malignant neoplasm of prostate (principal); I10 Essential (primary) hypertension; Z96.641 Presence of right artificial hip joint; K21.9 Gastro-esophageal reflux disease without esophagitis; N35.9 Urethral stricture, unspecified; Z01.812 Encounter for preprocedural laboratory examination; Z01.811 Encounter for preprocedural respiratory examination
CPT/HCPCS: 36415 ×2; 52648; 71046; 80048; 85025 ×2; C1758; G0378 ×2; J1100; J1170 ×2; J1940; J1956; J2001; J2250; J2270; J2405 ×2; J7030; J7040; Q9967